=== PATIENT | female | born 1960 | race Hispanic/Latino ===

== ENCOUNTER 2017-08-03 07:07 | Emergency (ER) | payer BC, OTHER ==
[2017-08-03 07:20] VITALS: O2SAT 100; BMI 27.1
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
[2017-08-03 07:49] LABS: URINE BILIRUBIN NEGATIVE (NEGATIVE); URINE BLOOD NEGATIVE (NEGATIVE); URINE GLUCOSE (UA) NEGATIVE (NEGATIVE); URINE LEUKOCYTE ESTERASE NEGATIVE Leu/uL (NEGATIVE); URINE NITRATE NEGATIVE (NEGATIVE); URINE PROTEIN NEGATIVE mg/dL (<30 mg/dL); URINE UROBILINOGEN 0.2 E.U./dL (<1 E.U./dL)
[2017-08-03 07:50] LABS: BASO # 0.05 K/mm3 (0.0-2.0); BASO % 0.8 % (0.0-3.0); EOS # 0.4 (0.0-0.7); EOS % 5.9 % (1.5-5.0); GRAN # 3.32 (1.4-6.5); GRAN % 55.9 % (50.0-68.0); LYMPH # 1.8 (1.2-3.4); LYMPH % 30.8 % (22.0-35.0); MEAN CELL VOLUME 91.6 fl (80.0-105.0); MEAN CORPUSCULAR HGB CONC 33.9 g/dl (31.0-37.0); MEAN PLATELET VOLUME 9.5 fl (7.0-11.0); MONO # 0.4 (0.1-0.6); MONO % 6.6 % (1.0-6.0); RBC 4.51 10^6/uL (3.5-6.1); RED CELL DISTRIBUTION WIDTH 13.3 % (11.5-14.5); URINE APPEARANCE CLEAR (CLEAR); URINE COLOR YELLOW (YELLOW); WHITE BLOOD COUNT 5.9 10^3/ul (4.5-11.0)
[2017-08-03 08:03] LABS: ALB/GLOB RATIO 1.4 (1.1-1.8); ALBUMIN 4.4 g/dL (3.0-4.8); ALT/SGPT 45 U/L (7-56); AST/SGOT 35 U/L (14-36); BLOOD UREA NITROGEN 20 mg/dL (7-21); CALCIUM 9.4 mg/dL (8.4-10.5); GFR AFRICAN-AMERICAN > 60; GFR NON-AFRICAN AMERICAN > 60
[2017-08-03 08:10] LABS: TROPONIN I < 0.01 ng/mL
[2017-08-03 08:17] LABS: CK-MB 4.7 ng/mL (0.0-3.6)
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
--- NOTE | 2017-08-03 09:40 | RAD ---
HISTORY: COMPARISON: No prior. TECHNIQUE: Chest PA and lateral FINDINGS: LINES AND TUBES: None. LUNG AND PLEURA: The lungs are well inflated and clear. HEART AND MEDIASTINUM: The heart is not enlarged. The hilar and mediastinal contours are within normal limits. SKELETAL STRUCTURES: The bony structures are within normal limits for the patient's age. VISUALIZED UPPER ABDOMEN: Normal. OTHER FINDINGS: None. IMPRESSION: No acute findings.
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
[2017-08-03 10:10] VITALS: TEMP 97.9
--- NOTE | 2017-08-03 10:22 | RAD ---
PROCEDURE: Cervical Spine Radiographs. HISTORY: Pain. COMPARISON: None. FINDINGS: BONES: There is straightening of the cervical spine with loss of normal cervical lordosis. There is mild degenerative retrolisthesis of C4 on C5. There is no acute fracture or spondylolisthesis. Bone mineralization is normal. The craniocervical junction is normal. There is mild degenerative osteoarthrosis at the atlantoaxial joint. DISC SPACES: There is multilevel degenerative disc disease with anterior spurring, mild reduced disc heights and multilevel facet arthropathy, worse at C4-5 and C6-7. No neural foraminal narrowing. SOFT TISSUES: Normal. No prevertebral soft tissue swelling. OTHER FINDINGS: None. IMPRESSION: 1. Multilevel degenerative disc disease, worse at C4-5 and C6-7. 2. Straightening of the cervical spine may be positional or related to muscle spasm.
[2017-08-03] MEDS ORDERED: Oxycodone/Acetaminophen 5/325 mg Tab PO STA (10:31)
[2017-08-03 11:58] VITALS: BP 128/87; PULSE 60; RESP 16
--- NOTE | 2017-08-03 17:49 | CARD ---
APPROVED REPORT EKG Measurement Heart [id number] <Conclusion> Sinus bradycardia Otherwise normal ECG
== END 2017-08-03 12:16 | disposition home or self-care (01) ==
LOC: ED 07:07 → MERGE 07:07 → ED 12:16
DX: S13.4XXA Sprain of ligaments of cervical spine, initial encounter (principal); S40.011A Contusion of right shoulder, initial encounter; V49.9XXA Car occupant (driver) (passenger) injured in unspecified traffic accident, initial encounter
CPT/HCPCS: 70450; 71046; 72050; 73030; 80053; 81003; 82550; 82553; 83615; 84484; 85025; 93005; 96374; 96375; 99283; J1885; J2405